=== PATIENT | male | born 1980 | race Caucasian/White ===

== ENCOUNTER 2019-10-08 16:41 | Emergency (ER) | payer OTHER, SELFPAY ==
[2019-10-08 16:42] VITALS: BP 150/86; PULSE 69; RESP 18; TEMP 36.7; O2SAT 94; BMI 34.0
[2019-10-08 16:49] VITALS: O2SAT 95
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
[2019-10-08] MEDS: Diphth,Pertuss(Acell),Tet Vac 0.5 ML Vial IM (17:13)
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
== END 2019-10-08 17:46 | disposition home or self-care (01) ==
PROVIDERS: Emergency Provider Emergency Medicine; Family Provider Family Medicine; PCP Family Medicine
DX: S01.02XA Laceration with foreign body of scalp, initial encounter (principal); S60.221A Contusion of right hand, initial encounter; R40.2410 Glasgow coma scale score 13-15, unspecified time; S30.810A Abrasion of lower back and pelvis, initial encounter; S60.511A Abrasion of right hand, initial encounter; V89.2XXA Person injured in unspecified motor-vehicle accident, traffic, initial encounter; Y93.9 Activity, unspecified; Y92.9 Unspecified place or not applicable
CPT/HCPCS: 12001; 73130; 90715; 99284

== ENCOUNTER 2021-09-29 11:07 | Emergency (ER) | payer OTHER, SELFPAY ==
[2021-09-29 11:08] VITALS: BP 138/94; PULSE 84; RESP 16; TEMP 36.8; O2SAT 96; BMI 27.7
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
[2021-09-29] MEDS: Ibuprofen 600 MG Tablet PO (11:34)
--- NOTE | 2021-09-29 11:45 | RAD_ITS ---
STUDY: X-RAY - LEFT KNEE REASON FOR EXAM: Male, 40 years old. Injury/Pain TECHNIQUE: 4 view(s) of the knee. COMPARISON: None. FINDINGS: No acute fracture, dislocation or osseous destruction. Minimal medial compartment arthrosis. Small volume joint effusion. Mild soft tissue swelling. RAD/Knee 4 or More Views IMPRESSION: Left knee intact Minimal medial compartment arthrosis Small joint effusion with mild soft tissue swelling Electronically Signed: Juan Jackson DO at 12:00 EST Tel , Service support ,
--- NOTE | 2021-09-29 12:11 | CM.ED ---
SW Note Referral Source: Case Find Referral Reason: NO PCP SW reviewed chart and patient has no PCP. SW provided patient with [facility] Provider [facility]. NO concerns or issues voiced. Brittanie GOFF
== END 2021-09-29 12:22 | disposition home or self-care (01) ==
LOC: ED 12:03
PROVIDERS: Emergency Provider Emergency Medicine
DX: M70.42 Prepatellar bursitis, left knee (principal); Y93.9 Activity, unspecified
CPT/HCPCS: 73564; 99283